=== PATIENT | female | born 1975 | race American Indian/Alaskan Native ===

== ENCOUNTER 2017-07-19 15:05 | Emergency (ER) | payer OTHER ==
[2017-07-19] MEDS ORDERED: Sodium Chloride 0.9% 1,000 ML IV ONE (16:14)
--- NOTE | 2017-07-19 16:32 | C.PDOC ---
42 y/o female with history of asthma presents to ED with complaints of right lower abdominal pain starting today around 1pm and associated nausea and vomiting. Patient reports similar pain in past consistent with ovarian cyst. Patient reports normal bowel movement yesterday. Denies fever, chills, back pain , dysuria or any other complaints at this time. (JassiBharti Nolan) History Per: Patient History/Exam Limitations: no limitations Onset/Duration Of Symptoms: Days Current Symptoms Are (Timing): Still Present Location Of Pain/Discomfort: RLQ <KeeneAlexandruBharti L - Last Filed: 07/19/17 19:01> <ShakirStanRudy - Last Filed: 07/21/17 15:20> Time Seen by Provider: 07/19/17 15:50 Chief Complaint (Nursing): Abdominal Pain Past Medical History Reviewed: Historical Data, Nursing Documentation, Vital Signs - Medical History PMH: Asthma Surgical History: (2) Family History: States: No Known Family Hx - Social History Hx Alcohol Use: Yes Hx Substance Use: No - Immunization History Hx Tetanus Toxoid Vaccination: No Hx Influenza Vaccination: No Hx Pneumococcal Vaccination: No <KeeneBharti An - Last Filed: 07/19/17 19:01> Vital Signs: Last Vital Signs Temp 97.2 F L 07/19/17 19:10 Pulse 65 07/19/17 19:10 Resp 18 07/19/17 19:10 BP 109/67 07/19/17 19:10 Pulse Ox 100 07/19/17 19:10 Review Of Systems Constitutional: Negative for: Fever, Chills Gastrointestinal: Positive for: Nausea, Vomiting, Abdominal Pain. Negative for : Diarrhea Genitourinary: Negative for: Dysuria, Vaginal Discharge, Vaginal Bleeding Skin: Negative for: Rash <KeeneAlexandruBharti L - Last Filed: 07/19/17 19:01> Physical Exam - Physical Exam Appears: Non-toxic, No Acute Distress Skin: Warm, Dry, No Rash Head: Atraumatic, Normacephalic Eye(s): bilateral: Normal Inspection Oral Mucosa: Moist Neck: Normal ROM, Supple Cardiovascular: Rhythm Regular Respiratory: Normal Breath Sounds, No Rales, No Rhonchi, No Wheezing Gastrointestinal/Abdominal: Soft, Tenderness (RLQ), No Guarding, No Rebound Back: No CVA Tenderness, No Paraspinal Tenderness Extremity: Bilateral: Atraumatic, Normal ROM Neurological/Psych: Oriented x3, Normal Speech Gait: Steady <Bharti Keene - Last Filed: 07/19/17 19:01> ED Course And Treatment - Laboratory Results Result Diagrams: 07/19/17 16:50 07/19/17 16:50 Lab Interpretation: Abnormal O2 Sat by Pulse Oximetry: 97 (RA) Pulse Ox Interpretation: Normal - CT Scan/US CT abd/pelvis Other Rad Studies (CT/US): Read By Radiologist, Radiology Report Reviewed CT/US Interpretation: PROCEDURE: CT Abdomen and Pelvis with contrast. HISTORY : rLQ abd pain. COMPARISON: None. TECHNIQUE: Following the intravenous administration of iodinated contrast material, a CT examination of the abdomen and pelvis performed from the domes of the diaphragms to the symphysis pubis with reformatted datasets provided not only axial but also sagittal and coronal planes. Oral contrast was not administered as per referring physician request. Contrast dose: Visipaque 320, 100 cc. Radiation dose: Total exam DLP = 405.20 mGy-cm. This CT exam was performed using one or more of the following dose reduction techniques: Automated exposure control, adjustment of the mA and/or kV according to patient size, and/or use of iterative reconstruction technique. FINDINGS: LOWER THORAX: Unremarkable. LIVER: Hepatic steatosis noted. No gross lesion or ductal dilatation. GALLBLADDER AND BILE DUCTS: Unremarkable. PANCREAS: Unremarkable. No gross lesion or ductal dilatation. SPLEEN: Unremarkable. ADRENALS: Unremarkable. No mass. KIDNEYS AND URETERS: Unremarkable. No hydronephrosis. No solid mass. VASCULATURE: Unremarkable. No aortic aneurysm. BOWEL: There is some gas distention of mid large-bowel segments. No mechanical bowel obstruction. No gross mural thickening. APPENDIX : Normal appendix. PERITONEUM: Unremarkable. No free fluid. No free air. LYMPH NODES: Unremarkable. No enlarged lymph nodes. BLADDER: Unremarkable. REPRODUCTIVE: Unremarkable. BONES: No acute fracture. OTHER FINDINGS: None. IMPRESSION: 1. No CT evidence of appendicitis. 2. No bowel urinary tract obstruction, free intrarenal gas, ascites or mesenteric edema. 3. There is some gas distention of mid large-bowel loops. 4. Hepatic steatosis. <Bharti Keene - Last Filed: 07/19/17 19:01> - Laboratory Results Result Diagrams: 07/19/17 16:50 07/19/17 16:50 <Rudy Schilling - Last Filed: 07/21/17 15:20> Medical Decision Making <Bharti Keene - Last Filed: 07/19/17 19:01> <Rudy Schilling - Last Filed: 07/21/17 15:20> Medical Decision Making: Impression: lower abdominal pain Plan: * Blood work * UA * Toradol * IV fluids * CT abd/pelvis * Reglan Progress: 1719 Labs reviewed. Slight leukocytosis, no bands or shift, no electrolyte abnormality. Urine negative for CT reviewed shows no acute appendicitis or other acute pathology, gas distention of mid large-bowel loops. Patient reevaluated and resting comfortably on stretcher in no distress. She reports pain has improved. Vital signs stable. Abdomen soft and minimally tender , no peritoneal signs. Discussed results with the patient and provide copy of the results Patient feels comfortable going home and will be discharged. Patient given follow up instructions. Instructed to return to ER if symptoms worsen or new symptoms arise. (Bharti Keene) Disposition Counseled Patient/Family Regarding: Studies Performed, Diagnosis, Need For Followup, Rx Given - Disposition Disposition Time: 18:40 - POA Present On Arrival: None <Bharti Keene - Last Filed: 07/19/17 19:01> <Rudy Schilling - Last Filed: 07/21/17 15:20> - Disposition Referrals: Femi Donald MD [Staff Provider] - Disposition: HOME/ ROUTINE Condition: IMPROVED Additional Instructions: Your labs were normal and CT of abdomen does not show any infectious or surgical pathology Take pain medicine as needed Follow up with your primary medical doctor or clinic in 2-5 days for further evaluation. Return to the emergency department at any time if symptoms persist or worsen. Prescriptions: Dicyclomine [Bentyl] 10 mg PO QID #20 cap Instructions: Acute Abdomen (Belly Pain), Adult (DC) Forms: [facility] (Armenian) - Clinical Impression Clinical Impression: Abdominal pain - PA / PUPPY SITTER / Resident Statement MD/DO has reviewed & agrees with the documentation as recorded. - Scribe Statement The provider has reviewed the documentation as recorded by the Scribe <Bharti Keene - Last Filed: 07/19/17 19:01> <Rudy Schilling - Last Filed: 07/21/17 15:20> - Scribe Statement Charlene Amador All medical record entries made by the Scribe were at my direction and personally dictated by me. I have reviewed the chart and agree that the record accurately reflects my personal performance of the history, physical exam, medical decision making, and the department course for this patient. I have also personally directed, reviewed, and agree with the discharge instructions and disposition. (Bharti Keene)
[2017-07-19 16:56] LABS: BASO # 0.1 K/uL (0.0-0.2); BASO % 0.7 % (0.0-2.0); EOS # 0.2 K/uL (0.0-0.7); EOS % 1.9 % (0.0-4.0); HEMOGLOBIN 13.1 g/dL (11.0-16.0); LYMPH # 4.8 K/uL (1.0-4.3); LYMPH % 40.3 % (20.0-40.0); MEAN CORPUSCULAR HEMOGLOBIN 30.2 pg (27.0-31.0); MEAN CORPUSCULAR HGB CONC 34.3 g/dL (33.0-37.0); MEAN PLATELET VOLUME 7.1 fL (7.2-11.7); MONO # 0.8 K/uL (0.0-0.8); MONO % 7.2 % (0.0-10.0); NEUT # 5.9 K/uL (1.8-7.0); NEUT % 49.9 % (50.0-75.0); NRBC % 0.1 % (0.0-2.0); RBC 4.32 Mil/uL (3.80-5.20); RED CELL DISTRIBUTION WIDTH 13.7 % (11.5-14.5); WHITE BLOOD COUNT 11.8 K/uL (4.8-10.8)
[2017-07-19] MEDS ORDERED: Sodium Chloride 0.9% 1,000 ML ONE (16:59)
[2017-07-19 17:08] LABS: ALB/GLOB RATIO 1.1 (1.0-2.1); ALBUMIN 4.2 g/dL (3.5-5.0); CALCIUM 9.1 mg/dl (8.6-10.4); GFR AFRICAN-AMERICAN > 60; GFR NON-AFRICAN AMERICAN > 60; LIPASE 67 U/L (23-300)
[2017-07-19 17:15] LABS: HCG,QUALITATIVE URINE NEGATIVE (NEGATIVE)
[2017-07-19 17:15] LABS: ALT/SGPT 32 U/L (9-52); AST/SGOT 40 U/L (14-36); BLOOD UREA NITROGEN 13 mg/dL (7-17)
[2017-07-19 17:19] LABS: SQUAMOUS EPITHIAL 4 /hpf (0-5); URINE BACTERIA FEW (<OCC); URINE BILIRUBIN NEGATIVE (NEGATIVE); URINE BLOOD 1+ (NEGATIVE); URINE CLARITY Hazy (Clear); URINE COLOR Yellow (YELLOW); URINE GLUCOSE (UA) NORMAL (Normal); URINE PROTEIN NEGATIVE (NEGATIVE); URINE UROBILINOGEN NORMAL mg/dL (0.2-1.0)
[2017-07-19 17:21] LABS: URINE LEUKOCYTE ESTERASE 1+ Leu/uL (Negative)
[2017-07-19] MEDS ORDERED: Iodixanol 320 MG/ML 100 ML BOTTLE IV ONE (17:33)
--- NOTE | 2017-07-19 18:25 | CT ---
PROCEDURE: CT Abdomen and Pelvis with contrast HISTORY: rLQ abd pain COMPARISON: None. TECHNIQUE: Following the intravenous administration of iodinated contrast material, a CT examination of the abdomen and pelvis performed from the domes of the diaphragms to the symphysis pubis with reformatted datasets provided not only axial but also sagittal and coronal planes. Oral contrast was not administered as per referring physician request. Contrast dose: Visipaque 320, 100 cc Radiation dose: Total exam DLP = 405.20 mGy-cm. This CT exam was performed using one or more of the following dose reduction techniques: Automated exposure control, adjustment of the mA and/or kV according to patient size, and/or use of iterative reconstruction technique. FINDINGS: LOWER THORAX: Unremarkable. LIVER: Hepatic steatosis noted. No gross lesion or ductal dilatation. GALLBLADDER AND BILE DUCTS: Unremarkable. PANCREAS: Unremarkable. No gross lesion or ductal dilatation. SPLEEN: Unremarkable. ADRENALS: Unremarkable. No mass. KIDNEYS AND URETERS: Unremarkable. No hydronephrosis. No solid mass. VASCULATURE: Unremarkable. No aortic aneurysm. BOWEL: There is some gas distention of mid large-bowel segments. No mechanical bowel obstruction. No gross mural thickening. APPENDIX: Normal appendix. PERITONEUM: Unremarkable. No free fluid. No free air. LYMPH NODES: Unremarkable. No enlarged lymph nodes. BLADDER: Unremarkable. REPRODUCTIVE: Unremarkable. BONES: No acute fracture. OTHER FINDINGS: None. IMPRESSION: 1. No CT evidence of appendicitis. 2. No bowel urinary tract obstruction, free intrarenal gas, ascites or mesenteric edema. 3. There is some gas distention of mid large-bowel loops. 4. Hepatic steatosis.
[2017-07-19 19:15] VITALS: BP 109/67; PULSE 65; RESP 18; TEMP 97.2; O2SAT 100
== END 2017-07-19 19:10 | disposition home or self-care (01) ==
LOC: C.ER 15:05
DX: R10.31 Right lower quadrant pain (principal)
CPT/HCPCS: 74177; 80053; 81001; 83690; 84703; 85025; 96361; 96374; 96375; 99284; J1885; J2765; J7030; Q9967